=== PATIENT | female | born 1940 | race Caucasian/White ===

== ENCOUNTER 2023-06-12 12:51 | Outpatient (RCR) | payer MEDICARE ==
[~2023-06-12 12:51] MED LIST: AMLODIPINE BESY10 MG PO; ASPIRIN EC81 MG PO; CLONIDINE HCL0.1 MG PO; EVISTA60 MG PO; FEROSUL325 MG PO; FERRIC SULFATE1 GM; FIBER PO; LABETALOL HCL200 MG PO; LINZESS145 MCG PO; MULTIVITAMIN1 EACH PO; NAMENDA5 MG PO; PAROXETINE HCL20 MG PO; QUERCETIN500 MG PO; TRAZODONE HCL100 MG PO; VITAMIN C1000 MG PO; VITAMIN D3125 MCG PO; ZINC PO
== END 2023-06-13 ==
LOC: PT 12:51
PROVIDERS: ATTEND Specialist
DX: Z47.1 Aftercare following joint replacement surgery (principal); Z96.652 Presence of left artificial knee joint